=== PATIENT | female | born 1945 | race Caucasian/White ===

== ENCOUNTER 2020-12-22 04:15 | Inpatient (IN) | payer MEDICARE ==
[~2020-12-22] VITALS: Ht 152.4 cm; Wt 93.9 kg
[2020-12-22] MEDS ORDERED: MORPHINE SULFATE 4 MG/ML, 1ML IVPush PRN (04:30)
[2020-12-22] MEDS ORDERED: SODIUM CHLORIDE FLUSH 10ML SYR IVF ONE (04:30)
[2020-12-22] MEDS ORDERED: SODIUM CHLORIDE 0.9% 1,000 ML IV ONE (04:30)
[2020-12-22] MEDS ORDERED: ONDANSETRON 2MG/ML, 2ML IVPush ONE (04:30)
[2020-12-22] MEDS ORDERED: PLEASE ENTER ALLERGIES MC SCH (04:30)
--- NOTE | 2020-12-22 04:37 | NUR ---
Pt BIB EMS from [facility] for N&V x4 days and states she also passed a kidney stone. Pt connected to all monitors, EKG done, on 2L NC 98%, normally does not wear O2 at home, ambulatory at home with no asssistive devices, BELGICA hugger in place for pt comfort. Sending facility states pt has no past medical hx, 20g in R forearm placed by sending facility. Notable labs from sending facility include GFR 44, albumin 2.6, lactic acid of 2.1, lipase of 29, WBC 15.2, urine nitrate +. Meds given at sending facility include morphine, zosyn, acetomenophin, zofran, and rocephin. Imaging completed includes Chest XR, US of abd, and CT of abd/pelvis with contrast.
[2020-12-22] MEDS ORDERED: ONDANSETRON 2MG/ML, 2ML ONE ×2 (05:00→13:30)
--- NOTE | 2020-12-22 05:17 | NUR ---
Pt refused NS, requests "5% dextrose", provider made aware
[2020-12-22 06:01] LABS: BASOPHILS % (AUTO) 0 % (0-1); EOSINOPHILS % (AUTO) 0 % (1-7); LYMPHOCYTES % (AUTO) 5 % (22-44); MEAN CORPUSCULAR HEMOGLOBIN 28.9 pg (27.0-34.8); MEAN CORPUSCULAR HGB CONC 33.2 g/dL (32.4-35.8); MEAN PLATELET VOLUME 7.9 fL (7.4-10.4); MONOCYTES % (AUTO) 7 % (2-9); NEUTROPHILS % (AUTO) 88 % (42-75); PLATELET COUNT 206 x10^3/uL (130-400); RED BLOOD COUNT 4.27 x10^6/uL (3.82-5.3); RED CELL DISTRIBUTION WIDTH 14.5 % (9.6-15.2)
[2020-12-22 06:08] LABS: MD NO
[2020-12-22 06:09] LABS: ALANINE AMINOTRANSFERASE 18 U/L (12-78); ALBUMIN 2.5 g/dL (3.4-5.0); ANION GAP 5 mmol/L (5-15); CALCIUM 9.7 mg/dL (8.5-10.1); CHLORIDE 107 mmol/L (98-107); CREATININE 1.14 mg/dL (0.55-1.02)
[2020-12-22 06:12] LABS: ALKALINE PHOSPHATASE 75 U/L (45-117); BILIRUBIN,TOTAL 0.4 mg/dL (0.2-1.0); TOTAL PROTEIN 6.1 g/dL (6.4-8.2)
--- NOTE | 2020-12-22 06:50 | NUR ---
ATTEMPTED TO CALL REPORT X2.
--- NOTE | 2020-12-22 06:51 | NUR ---
REPORT TO DIDIER SMITH
--- NOTE | 2020-12-22 07:13 | NUR ---
report taken from sarah de la vega, pt sleeping, resps even and unlabored. per SARAH de la vega, report has been attempted x 2 to accepting floor, unable to exchange due to shift change. pt to be transported up to floor once ED to floor report complete.
--- NOTE | 2020-12-22 07:40 | NUR ---
pt assisted to bathroom, pt voided and stooled, mobilized with one person assist. 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 pt denies pain. pt had no difficulty voiding/stooling. report called to receiving ignacia de la vega, pt transported to floor without incident.
[2020-12-22 08:45] VITALS: BP 124/75
[2020-12-22] MEDS ORDERED: POLYETHYLENE GLYCOL 17 GM PACKET PO PRN (10:30)
[2020-12-22] MEDS ORDERED: BISACODYL 10 MG SUPP PR PRN (10:30)
[2020-12-22] MEDS ORDERED: DOCUSATE 100 MG CAPSULE PO PRN (10:30)
[2020-12-22] MEDS ORDERED: morphine SULFATE 10 MG/ML, 1ML IVPush PRN (10:30)
[2020-12-22] MEDS ORDERED: ONDANSETRON 2MG/ML, 2ML IVPush PRN (10:30)
[2020-12-22] MEDS ORDERED: CEFTRIAXONE 2 GM in DEXTROSE 5% 50 ML IVPB SCH (11:00)
[2020-12-22] MEDS ORDERED: LIDOCAINE 1%, 10ML ONE (11:09)
[2020-12-22 12:18] LABS: MICROSCOPIC AUTO
[2020-12-22] MEDS ORDERED: FENTANYL PF 100 MCG/2ML ONE ×2 (13:15→13:16)
[2020-12-22] MEDS ORDERED: MIDAZOLAM 1 MG/ML, 5ML ONE ×2 (13:15)
[2020-12-22] MEDS ORDERED: NALOXONE 1 MG/ML, 2ML ONE (13:16)
[2020-12-22] MEDS ORDERED: FLUMAZENIL 0.1 MG/1 ML, 5ML ONE (13:16)
[2020-12-22] MEDS: SODIUM CHLORIDE 0.9% 1,000 ML IV SCH (14:39)
[2020-12-22 14:50] VITALS: BP 146/70
[2020-12-22] MEDS ORDERED: VISIPAQUE 270 MG/ML, 50ML BOTTLE ONE (15:41)
[2020-12-22 16:44] VITALS: BP 149/81
[2020-12-22 16:48] LABS: TROPONIN I < 0.015 ng/mL (0.000-0.045)
[2020-12-22] MEDS ORDERED: PHARMACY MAY ADJ FOR RENAL FX MC PRN (17:00)
[2020-12-22] MEDS: MAGNESIUM SULFATE PMX 2GM/50ML 50 ML IV ONE ×2 (17:54→23:02)
[2020-12-22] MEDS: ACETAMINOPHEN 325 MG TABLET PO PRN (17:54)
[2020-12-22 20:23] VITALS: BP 133/80
[2020-12-22] MEDS: AMPICILLIN/SULBACTAM 3 GM in SODIUM CHLORIDE 0.9% 100 ML IV SCH (20:45)
[2020-12-22 21:50] LABS: TROPONIN I < 0.015 ng/mL (0.000-0.045)
[2020-12-23 01:54] VITALS: BP 110/61
[2020-12-23] MEDS: ACETAMINOPHEN 325 MG TABLET PO PRN ×2 (02:24→13:11)
[2020-12-23] MEDS: AMPICILLIN/SULBACTAM 3 GM in SODIUM CHLORIDE 0.9% 100 ML IV SCH ×3 (03:53→22:21)
[2020-12-23] MEDS: SODIUM CHLORIDE 0.9% 1,000 ML IV SCH ×2 (06:18→18:24)
[2020-12-23 06:44] LABS: BASOPHILS % (AUTO) 0 % (0-1); EOSINOPHILS % (AUTO) 0 % (1-7); LYMPHOCYTES % (AUTO) 10 % (22-44); MD NO; MEAN CORPUSCULAR HEMOGLOBIN 29.3 pg (27.0-34.8); MEAN CORPUSCULAR HGB CONC 33.7 g/dL (32.4-35.8); MEAN PLATELET VOLUME 8.5 fL (7.4-10.4); MONOCYTES % (AUTO) 8 % (2-9); NEUTROPHILS % (AUTO) 82 % (42-75); PLATELET COUNT 163 x10^3/uL (130-400); RED BLOOD COUNT 4.12 x10^6/uL (3.82-5.3)
[2020-12-23 06:51] VITALS: BP 133/79
[2020-12-23 06:56] LABS: ALBUMIN 2.2 g/dL (3.4-5.0); ANION GAP 8 mmol/L (5-15); CALCIUM 10.1 mg/dL (8.5-10.1); CHLORIDE 104 mmol/L (98-107)
[2020-12-23 07:05] LABS: ALANINE AMINOTRANSFERASE 23 U/L (12-78); ALKALINE PHOSPHATASE 78 U/L (45-117); BILIRUBIN,TOTAL 0.6 mg/dL (0.2-1.0); TROPONIN I < 0.015 ng/mL (0.000-0.045)
[2020-12-23] MEDS ORDERED: PHARMACY MAY ADJ FOR RENAL FX MC PRN (11:30)
[2020-12-23] MEDS: ENOXAPARIN 30 MG/0.3 ML SQ SCH (13:04)
[2020-12-23 13:07] VITALS: BP 139/80
[2020-12-23] MEDS: HYDROcodone/APAP 5/325 TABLET PO PRN ×3 (16:03→23:00)
[2020-12-23 22:23] VITALS: BP 103/54
[2020-12-24] MEDS: SODIUM CHLORIDE 0.9% 1,000 ML IV SCH ×3 (02:57→23:17)
[2020-12-24 02:58] VITALS: BP 100/66
[2020-12-24 06:05] LABS: CHLORIDE 109 mmol/L (98-107)
[2020-12-24 06:12] LABS: ANION GAP 5 mmol/L (5-15); CALCIUM 9.7 mg/dL (8.5-10.1)
[2020-12-24 09:01] VITALS: BP 139/83
[2020-12-24] MEDS: AMPICILLIN/SULBACTAM 3 GM in SODIUM CHLORIDE 0.9% 100 ML IV SCH ×2 (11:19→23:10)
[2020-12-24] MEDS: ENOXAPARIN 30 MG/0.3 ML SQ SCH (11:20)
[2020-12-24 12:53] LABS: BASOPHILS % (AUTO) 0 % (0-1); EOSINOPHILS % (AUTO) 0 % (1-7); LYMPHOCYTES % (AUTO) 7 % (22-44); MEAN CORPUSCULAR HEMOGLOBIN 28.9 pg (27.0-34.8); MEAN CORPUSCULAR HGB CONC 32.9 g/dL (32.4-35.8); MEAN PLATELET VOLUME 8.6 fL (7.4-10.4); MONOCYTES % (AUTO) 6 % (2-9); NEUTROPHILS % (AUTO) 86 % (42-75); PLATELET COUNT 152 x10^3/uL (130-400); RED BLOOD COUNT 3.98 x10^6/uL (3.82-5.3); RED CELL DISTRIBUTION WIDTH 15.3 % (9.6-15.2)
[2020-12-24 13:30] LABS: MD SCAN
[2020-12-24 13:41] VITALS: BP 135/79
[2020-12-24 18:17] VITALS: BP 126/73
[2020-12-24] MEDS: HYDROcodone/APAP 5/325 TABLET PO PRN (20:50)
[2020-12-25 00:53] VITALS: BP 120/70
[2020-12-25 07:59] VITALS: BP 132/80
[2020-12-25] MEDS ORDERED: POTASSIUM CHLORIDE 20 MEQ TAB.ER.PRT PO ONE (09:00)
[2020-12-25] MEDS: SODIUM CHLORIDE 0.9% 1,000 ML IV SCH ×2 (10:55→21:50)
[2020-12-25] MEDS: ENOXAPARIN 40 MG/0.4 ML SQ SCH (10:56)
[2020-12-25] MEDS: AMPICILLIN/SULBACTAM 3 GM in SODIUM CHLORIDE 0.9% 100 ML IV SCH (11:18)
[2020-12-25 12:04] VITALS: BP 121/74
[2020-12-25 19:53] VITALS: BP 141/60
[2020-12-26] MEDS: AMPICILLIN/SULBACTAM 3 GM in SODIUM CHLORIDE 0.9% 100 ML IV SCH ×2 (00:05→12:02)
[2020-12-26 00:35] VITALS: BP 128/63
[2020-12-26 06:03] LABS: MEAN CORPUSCULAR HEMOGLOBIN 29.3 pg (27.0-34.8); MEAN CORPUSCULAR HGB CONC 33.4 g/dL (32.4-35.8); MEAN PLATELET VOLUME 8.2 fL (7.4-10.4); PLATELET COUNT 211 x10^3/uL (130-400); RED CELL DISTRIBUTION WIDTH 15.1 % (9.6-15.2)
[2020-12-26 06:10] LABS: CHLORIDE 113 mmol/L (98-107)
[2020-12-26 06:15] LABS: ANION GAP 4 mmol/L (5-15); CALCIUM 9.6 mg/dL (8.5-10.1); CREATININE 0.82 mg/dL (0.55-1.02)
[2020-12-26 06:39] LABS: MD YES
[2020-12-26 06:41] LABS: BAND#(MANUAL) 0.18 x10^3/uL; BANDS%(MANUAL) 2 % (0-7); EOS#(MANUAL) 0.09 x10^3/uL (0.0-0.4); EOS% (MANUAL) 1 % (1-7); LYMPH#(MANUAL) 0.79 x10^3/uL (1-3.4); LYMPHS% (MANUAL) 9 % (22-44); METAMYELOCYTES# (MANUAL) 0.26 x10^3/uL (0-0); METAMYELOCYTES% (MANUAL) 3 % (0-1); MONOS#(MANUAL) 0.79 x10^3/uL (0.3-2.7); MONOS% (MANUAL) 9 % (2-9); MYELOCYTES# (MANUAL) 0.09 x10^3/uL (0-0); MYELOCYTES% (MANUAL) 1 % (0-0); SEGS% (MANUAL) 75 % (42-75)
[2020-12-26 06:42] LABS: <PLATELET ESTIMATE> ADEQUATE; <PLT MORPHOLOGY> NORMAL PLT MORPH; <RBC MORPHOLOGY> NORMAL; TOXIC GRAN 1+
[2020-12-26 06:52] VITALS: BP 137/75
[2020-12-26] MEDS: SODIUM CHLORIDE 0.9% 1,000 ML IV SCH (08:33)
[2020-12-26] MEDS: ENOXAPARIN 40 MG/0.4 ML SQ SCH (10:43)
[2020-12-26] MEDS ORDERED: POTASSIUM PHOSPHATE 22 MEQ in SODIUM CHLORIDE 0.9% 500 ML IV ONE (11:00)
[2020-12-26 12:28] VITALS: BP 182/84
[2020-12-26] MEDS ORDERED: ONDA4TAB7 PO (13:11)
[2020-12-26] MEDS ORDERED: POLY17PO5 PO (13:11)
[2020-12-26] MEDS ORDERED: HYDR-2214 PO (13:11)
[2020-12-26] MEDS ORDERED: ACET325T26 PO (13:11)
[2020-12-26] MEDS ORDERED: AMOX1TAB64 PO (13:12)
== END 2020-12-26 16:30 | disposition home or self-care (01) | DRG 871 ==
LOC: ED 04:45 → EDIP 06:19 → 4NE 07:47 → 4EST 16:48 → DCLOUNGE 12-26 16:05
PROVIDERS: ADMIT Hospitalist; ATTEND Internal Medicine
PROC: 0T913ZZ Drainage of Left Kidney, Percutaneous Approach (ICD-10-PCS; principal; 2020-12-22)
PROC: BT121ZZ Fluoroscopy of Left Kidney using Low Osmolar Contrast (ICD-10-PCS; 2020-12-22)
DX: A41.9 Sepsis, unspecified organism (principal); N17.0 Acute kidney failure with tubular necrosis; N13.6 Pyonephrosis; R47.01 Aphasia; K14.8 Other diseases of tongue; Z20.822 Contact with and (suspected) exposure to COVID-19; Z53.20 Procedure and treatment not carried out because of patient's decision for unspecified reasons; Z96.659 Presence of unspecified artificial knee joint; R73.9 Hyperglycemia, unspecified; Z80.0 Family history of malignant neoplasm of digestive organs; Z87.442 Personal history of urinary calculi; Z93.6 Other artificial openings of urinary tract status
CPT/HCPCS: 36415; 50432; 50433; 70450; 71045; 76937; 80048; 80053; 81001; 82962; 83605; 83735; 84100; 84145; 84443; 84484; 85025; 87040; 87086; 93005; 96374; 99156; 99157; C1894; G0378; J0295; J0696; J1650; J2250; J2405; J3010; Q9966; C1769; C2625; J2310; J3475; J7030; J7040